=== PATIENT | male | born 2005 | race Caucasian/White ===

== ENCOUNTER 2024-07-20 09:28 | Outpatient (CLI) | payer BC, OTHER | END 2024-07-20 09:29 | disposition home or self-care (01) | LOC: DTY/OP 09:28 | PROVIDERS: ATTEND Pediatrics Pediatric Gastroenterology | DX: K25.3 Acute gastric ulcer without hemorrhage or perforation (principal); R63.4 Abnormal weight loss; R11.0 Nausea; R14.0 Abdominal distension (gaseous) | CPT/HCPCS: 97802 ==